=== PATIENT | female | born 2000 | race Hispanic/Latino ===

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

== ENCOUNTER 2018-06-15 22:16 | Emergency (ER) | payer BC, OTHER ==
[2018-06-15] MEDS ORDERED: Ondansetron ODT 4 MG TAB ONE (22:53)
--- NOTE | 2018-06-15 23:36 | CT ---
CT OF THE BRAIN WITHOUT CONTRAST 06/15/18 INDICATION: Fall with concern for head injury. COMPARISON: None. FINDINGS: No acute infarct, hemorrhage or hydrocephalus is present. Septum pellucidum and third ventricle are m idline. The skull is intact. Mastoid air cells are clear. The paranasal sinuses are clear. IMPRESSION: No acute intracranial abnormality. POS: [facility]
--- NOTE | 2018-06-15 23:37 | RAD ---
LEFT ANKLE THREE VIEWS 06/15/18 INDICATION: Tripped and fell with left ankle pain. COMPARISON: None. FINDINGS/IMPRESSION: No acute fracture or subluxation is evident. POS: [facility]
== END 2018-06-15 23:50 | disposition home or self-care (01) ==
LOC: NAV ERS 22:16
DX: S06.0X0A Concussion without loss of consciousness, initial encounter (principal); S93.402A Sprain of unspecified ligament of left ankle, initial encounter; D64.9 Anemia, unspecified; E11.649 Type 2 diabetes mellitus with hypoglycemia without coma; W01.0XXA Fall on same level from slipping, tripping and stumbling without subsequent striking against object, initial encounter
CPT/HCPCS: 70450; Q0162